=== PATIENT | female | born 1955 | race Caucasian/White ===

== ENCOUNTER → 2017-04-17 | Outpatient (CLI) | payer BC ==
[~2017-04-17] MED LIST: ACIPHEX20 MG PO; CEPHALEXIN500 M1 PO; CLARITIN 1010 MG/TAB PO; EMBREL SQ; ENBREL50 MG/ML SQ; FLONASEALLERGY NS; GLUCOPHAGE XR500 M1 PO; OMEGA-31 SGL PO; REFRESH TEARS 330 ML OT; RESTASIS; RESTASIS0.05% OU; SYNTHROID0.05 MG/TA PO
== END ==
LOC: MC.RAD 13:11
DX: Z12.31 Encounter for screening mammogram for malignant neoplasm of breast (principal)

== ENCOUNTER 2017-04-25 07:49 | Day surgery (SDC) | payer BC ==
[2017-04-25] VITALS (7 sets, daily range): BP systolic 102–135; BP diastolic 65–78; PULSE 52–81; TEMP 97.7–97.8
[~2017-04-25] VITALS: Ht 172.7 cm; Wt 97.5 kg
[~2017-04-25 07:49] MED LIST changes: -CEPHALEXIN500 M1 PO; -CLARITIN 1010 MG/TAB PO; -ENBREL50 MG/ML SQ; -FLONASEALLERGY NS; -GLUCOPHAGE XR500 M1 PO; -OMEGA-31 SGL PO; -REFRESH TEARS 330 ML OT; -RESTASIS0.05% OU; -SYNTHROID0.05 MG/TA PO
[2017-04-25] MEDS ORDERED: SYNTHROID0.05 MG/TA PO (08:09)
[2017-04-25] MEDS ORDERED: REFRESH TEARS 330 ML OT (08:09)
[2017-04-25] MEDS ORDERED: GLUCOPHAGE XR500 M1 PO (08:10)
[2017-04-25] MEDS ORDERED: OMEGA-31 SGL PO (08:11)
[2017-04-25] MEDS ORDERED: RESTASIS0.05% OU (08:12)
[2017-04-25] MEDS ORDERED: FLONASEALLERGY NS (08:13)
[2017-04-25] MEDS ORDERED: CLARITIN 1010 MG/TAB PO (08:14)
[2017-04-25] MEDS ORDERED: ENBREL50 MG/ML SQ (09:08)
[2017-04-25] MEDS ORDERED: CEPHALEXIN500 M1 PO (11:12)
== END 2017-04-25 11:40 | disposition home or self-care (01) ==
LOC: COL.CAR 07:49 → EUO 07:49
DX: Z45.09 Encounter for adjustment and management of other cardiac device (principal); E03.9 Hypothyroidism, unspecified; Z86.73 Personal history of transient ischemic attack (TIA), and cerebral infarction without residual deficits; I49.3 Ventricular premature depolarization
CPT/HCPCS: J0690; J2250; J3010; J7040

== ENCOUNTER → 2019-01-22 | Outpatient (CLI) | payer BC ==
[~2019-01-22] MED LIST changes: +CEPHALEXIN500 M1 PO; +CLARITIN 1010 MG/TAB PO; +ENBREL50 MG/ML SQ; +FLONASEALLERGY NS; +GLUCOPHAGE XR500 M1 PO; +OMEGA-31 SGL PO; +REFRESH TEARS 330 ML OT; +RESTASIS0.05% OU; +SYNTHROID0.05 MG/TA PO
== END ==
LOC: MC.RAD 07:27
DX: Z12.31 Encounter for screening mammogram for malignant neoplasm of breast (principal)

== ENCOUNTER → 2024-01-12 | Day surgery (SDC) | payer BC, MEDICARE ==
[~2024-01-12] VITALS: Ht 172.7 cm; Wt 71.9 kg
[~2024-01-12] MED LIST changes: +CALCIUM 600MG+D1 TAB PO; +CARAFATE 1GM1 G PO; +ENBREL50 MG/1 ML SQ; -ENBREL50 MG/ML SQ; +GABA PO; +LR 1,000 ML IV SCH; +MIEBO 100% EYE D3 ML OS; +Ondansetron 4 MG/2 ML VIAL IV PRN; +PROTONIX 40MG T40 MG PO; +RESTASIS0.05% OP; -RESTASIS0.05% OU; +ULTRAM 50MG TAB50 MG PO; +VOLTAREN GEL 1%1 TU TP
[2024-01-12 12:42] VITALS: BP 108/81; PULSE 77; TEMP 97.6
--- NOTE | 2024-01-12 13:21 | NUR ---
The patient ambulated back to [facility] independently using a steady gait and appeared to tolerate the activity well. Vital signs obtained. Consent signed. Assessment completed. Home medications reconcilled. 20G IV started in right hand with one stick, LR infusing without difficulty. Warm blanket provdied. The patient's is to be called when she is ready to be discharged home. Denies any further needs at this time.
[2024-01-12 14:35] VITALS: BP 108/67; PULSE 74
[2024-01-12 14:45] VITALS: BP 112/72; PULSE 75
--- NOTE | 2024-01-12 14:47 | NUR ---
1435 PATIENT RETURNS TO [facility] [place] [facility] VIA CART. PT AWAKE AND ALERT. RESPIRATIONS UNLABORED. AMBULATED TO RECLINER CHAIR WITH 2:1 SBA. PT DENIES NAUSEA OR ABDOMINAL PAIN. HOOKED UP TO MONITOR AND VS OBTAINED. CALL LIGHT AT SIDE AND PRESENT. 1445 PATIENT TOLERATING WATER AND CHEESE AND CRACKERS WITHOUT NAUSEA OR DIFFICULTY SWALLOWING (EGD ONLY). 1455 IN ROOM SPEAKING WITH PATIENT. 1505 D/C INSTRUCTIONS REVIEWED WITH PATIENT. PT VERBALIZED UNDERSTANDING AND A COPY OF INSTRUCTIONS PROVIDED IN D/C FOLDER. 1510 PATIENT DRESSES SELF. 1520 PATIENT DISCHARGED FROM UNIT VIA W/C TO A PERSONAL VEHICLE. PT LEFT HOSPITAL IN STABLE CONDITION.
[2024-01-12 14:53] VITALS: BP 118/75; PULSE 75
== END ==
LOC: SDCO 12:28
DX: R19.7 Diarrhea, unspecified (principal); K44.9 Diaphragmatic hernia without obstruction or gangrene; R07.0 Pain in throat; R15.2 Fecal urgency; R10.13 Epigastric pain; K57.30 Diverticulosis of large intestine without perforation or abscess without bleeding; Z87.11 Personal history of peptic ulcer disease; Z83.79 Family history of other diseases of the digestive system; Z86.16 Personal history of COVID-19; Z79.899 Other long term (current) drug therapy
CPT/HCPCS: J2704; J7120